=== PATIENT | female | born 1990 | race Caucasian/White ===

== ENCOUNTER 2018-12-26 11:44 | Day surgery (SDC) | payer OTHER ==
[~2018-12-26] VITALS: Ht 180.3 cm; Wt 69.6 kg
[2018-12-26 12:26] VITALS: Ht 180.3 cm; Wt 69.6 kg
[2018-12-26 12:42] VITALS: BP 117/73; PULSE 75; RESP 18
--- NOTE | 2018-12-26 12:45 | PREAC ---
Date/Time of Note Date/Time of Note DATE: 12/26/18 TIME: 12:45 Anesthesia Eval and Record Evaluation Time Pre-Procedure Interview DATE: 12/26/18 TIME: 12:45 Age 28 Sex female NPO: 8 hrs Preoperative diagnosis GERD Planned procedure EGD Past Medical History Past Medical History: Includes Psych: Anxiety Surgery & Anesthesia Issues No known issue Meds Anticoagulation: No Beta [place] within 24 hr: No Reason Beta [place] not given: Pt. not on B-[place] Meds reviewed: Yes Allergies Allergies Reviewed: Yes Labs/Studies Labs Reviewed: Reviewed by anesthesiologist test: Negative Studies: ECG (n/a), CXR (n/a) Pre-procedure Exam Last vitals Vital Signs Date Temp Pulse Resp B/P (MAP) Pulse Ox O2 O2 Flow FiO2 Time Delivery Rate 12/26/18 98.1 75 18 117/73 98 Room Air 12:42 (88) Airway: Adequate mouth opening Mallampati: Mallampati I Teeth: Normal Lung: Normal Heart: Normal ASA Physical Status ASA physical status: 1 Emergency: None Planned Anesthetic General/MAC: MAC Planned Pain Management Parenteral pain med Pre-operative Attestations Prior to commencing anesthesia and surgery, the patient was re-evaluated, there was verification of: *The patient's identity *The results of appropriate recent lab work and preoperative vital signs *The above evaluation not changing prior to induction *Anesthetic plan, risk benefits, alternative and complications discussed with patient/family; questions answered; patient/family understands, accepts and wishes to proceed. ZOYA BOLTON MD Dec 26, 2018 12:45
[2018-12-26] MEDS ORDERED: PROPOFOL 20 ML ONE (12:46)
[2018-12-26] MEDS ORDERED: BUSPIRONE PO (12:51)
[2018-12-26] MEDS ORDERED: ZANTAC PO (12:51)
[2018-12-26] MEDS ORDERED: LATUDA (12:51)
[2018-12-26] MEDS ORDERED: GABAPENTIN PO (12:51)
[2018-12-26 13:40] VITALS: BP 125/83; PULSE 88; RESP 16
--- NOTE | 2018-12-26 16:45 | PAC ---
Date/Time of Note Date/Time of Note DATE: 12/26/18 TIME: 16:45 Post-Anesthesia Notes Post-Anesthesia Note Last documented vital signs Vital Signs Date Temp Pulse Resp B/P (MAP) Pulse Ox O2 O2 Flow FiO2 Time Delivery Rate 12/26/18 98.1 88 16 125/83 98 Room Air 13:40 (97) 12/26/18 98.1 12:42 Activity: WNL Respiratory function: WNL Cardiovascular function: WNL Mental status: Baseline Pain reasonably controlled: Yes Hydration appropriate: Yes Nausea/Vomiting absent: No ZOYA BOLTON MD Dec 26, 2018 16:45
== END 2018-12-26 14:56 | disposition home or self-care (01) ==
LOC: GIL 11:44
PROVIDERS: ATTEND Internal Medicine Gastroenterology
DX: K44.9 Diaphragmatic hernia without obstruction or gangrene (principal); K21.0 Gastro-esophageal reflux disease with esophagitis
CPT/HCPCS: 43239; 84703; 88305; 88312; Z7610